=== PATIENT | male | born 1955 | race Caucasian/White ===

== ENCOUNTER 2018-06-07 16:30 | Emergency (ER) | payer BC ==
[~2018-06-07 16:30] MED LIST: ASCO-599 PO; CHOL100062 PO; FISH OIL1 CAP PO; MULT-1335 PO; NAPR220C12 PO
--- NOTE | 2018-06-07 17:28 | RADIOLOGY IMAGING REPORT ---
FACILITY: [facility] - [place] PATIENT NAME: Miko Ardon : 1955 MR: [id number] V: [id number] EXAM DATE: ORDERING PHYSICIAN: ANH LUKE TECHNOLOGIST: [place] [facility] [place] Patient: Miko Ardon : 1955 Visit/Account:[id number] Date of Sevice: 06/07/2018 CT OF THE BRAIN WITHOUT CONTRAST HISTORY: Injury to the left temporal area PROCEDURE: 3.0 mm contiguous axial sections were performed through the brain. Sagittal and coronal r eformats were submitted. COMPARISON: None FINDINGS: BRAIN: Brain and intracranial structures: There is no mass lesion, hemorrhage or acute infarct. Orbits (included portions): Normal. Scalp: Normal. Skull: Normal. Paranasal sinuses and mastoid air cells (included portions): Normal. IMPRESSION: No evidence of acute intracranial abnormality. One of the following dose optimization techniques was utilized in the performance of this exam: Autom ated exposure control; adjustment of the mA and/or kV according to the patient's size; or use of an i terative reconstruction technique. Specific details can be referenced in the facility's radiology C T exam operational policy. Report Dictated By: Lea Hanks MD at 06/07/2018 5:22 PM Report E-Signed By: Lea Hanks MD at 06/07/2018 5:24 PM WSN:[id number]
--- NOTE | 2018-06-07 17:29 | RADIOLOGY IMAGING REPORT ---
FACILITY: [facility] - [place] PATIENT NAME: Miko Ardon : 1955 MR: [id number] V: [id number] EXAM DATE: ORDERING PHYSICIAN: ANH LUKE TECHNOLOGIST: Location: [facility] - [place], [place] Patient: Miko Ardon : 1955 Visit/Account:[id number] Date of Sevice: 06/07/2018 2 VIEWS CHEST INDICATION: Fall from ladder. COMPARISON: None available FINDINGS: Cardiomediastinal silhouette and pulmonary vessels within normal limits. Possible coronary artery aura cification/stent. There is no focal infiltrate or lobar consolidation. There is no pneumothorax or pleural effusion. Upper abdomen is unremarkable. No acute bony abnormality. No indication of vertebral body compression or discrete rib fractures. IMPRESSION: 1. No acute cardiopulmonary process. No indication of thoracic trauma. Report Dictated By: Mc Chavez at 06/07/2018 5:23 PM Report E-Signed By: Mc Chavez at 06/07/2018 5:26 PM WSN:[id number]
--- NOTE | 2018-06-07 17:31 | RADIOLOGY IMAGING REPORT ---
FACILITY: [facility] PATIENT NAME: Miko Ardon : 1955 MR: [id number] V: [id number] EXAM DATE: ORDERING PHYSICIAN: ANH LUKE TECHNOLOGIST: Location: [place] [facility] - [place] Patient: Miko Ardon : 1955 Visit/Account:[id number] Date of Sevice: 06/07/2018 RIBS RIGHT INDICATION: Right rib pain after fall from ladder.. COMPARISON: None Available. FINDINGS: 2 views of the right ribs. No discrete or slice rib fracture. No bony lesions. The lungs sh ow a few scattered granulomas without other focal abnormality. The remaining bony and soft tissues un remarkable. IMPRESSION: No indication of right rib fracture. Report Dictated By: Mc Chavez at 06/07/2018 5:26 PM Report E-Signed By: Mc Chavez at 06/07/2018 5:28 PM WSN:[id number]
--- NOTE | 2018-06-07 17:42 | ER Report ---
History and Physical Time Seen By MD: 16:36 Hx. of Stated Complaint: PATIENT REPORTS THAT HE WAS ON A LADDER AND THE LADDER SLIPPED. HE FELL FROM ABOUT 4-5 FEET AND LANDED ON HIS BACK. HE ALSO REPORTS HITTING HIS HEAD. PATIENT IS ON BLOOD THINNERS FROM A PREVIOUS CARDIAC EVENT HPI/ROS CHIEF COMPLAINT: Fall, right rib and head injury HISTORY OF PRESENT ILLNESS: Patient is a 62-year-old male who presents to ED with complaint of right rib injury after falling from a ladder. He states that he was about 3-4 feet onto the ladder when he fell. He states that he fell and to a small stepladder where he hit the right side of his back. He has had pain with cough and deep breaths. He states that he also hit the right side of his head but has not had any headache, LOC, nausea, vomiting, numbness, tingling. He is however on Brilinta for a previous heart stent that was placed 2 years ago. He is not taking any medication for this. He has not applied ice. REVIEW OF SYSTEMS: Constitutional: No fever, no chills. Cardiovascular: No chest pain, no palpitations. Respiratory: No cough, no shortness of breath. Musculoskeletal: See history of present illness. Skin: No rashes. Neurological: See history of present illness. Allergies: Coded Allergies: No Known Drug Allergies (Unverified , 01/12/16) Home Meds Reported Medications Naproxen Sodium (ALEVE) 220 Mg Capsule, 440 MG PO BID, CAPSULE 01/12/16 Multivitamins W-Minerals (Multiple Vitamin) 1 Tab Tablet, 1 TAB PO QDAY 03/10/13 Ascorbate Calcium (Vitamin C) 500 Mg Tablet, 500 MG PO QDAY 03/10/13 Cholecalciferol (Vitamin D3) (VITAMIN D) 10,000 Unit Capsule, 46860 UNIT PO QDAY 03/10/13 [place]-3 Fatty Acids (Fish Oil) 1 Cap Capsule, 1 CAP PO QDAY 03/10/13 Reviewed Nurses Notes: Yes Old Medical Records Reviewed: Yes Hx Smoking: Yes Smoking Status: Former Smoker Exposure to Second Hand Smoke?: Yes Constitutional Vital Sign - Last 24 Hours 06/07/18 16:38 Temp 98.6 Pulse 82 Resp 20 B/P (MAP) 164/88 Pulse Ox 95 O2 Delivery Room Air Physical Exam General Appearance: The patient is alert, has no immediate need for airway protection and no signs of toxicity. Patient appears to be in no acute distress. Eyes: Pupils equal and round no pallor or injection. EOMs are full bilaterally. ENT, Mouth: Mucous membranes are moist. Respiratory: There are no retractions, lungs are clear to auscultation. There is pain with palpation of the lateral superior right rib area. No swelling or ecchymosis appreciated. Cardiovascular: Regular rate and rhythm. Neurological: Cranial nerves II through XII intact. Normal Romberg. Normal finger to nose test bilaterally. Skin: Warm and dry, no rashes. Musculoskeletal: Neck is supple non tender. Extremities are nontender, nonswollen and have full range of motion. DIFFERENTIAL DIAGNOSIS: After history and physical exam differential diagnosis was considered for head injury including but not limited to concussion, skull fracture, intraparenchymal contusion, subarachnoid, subdural and epidural hematoma. Medical Decision Making EKG/Imaging Imaging CT Head: IMPRESSION: No evidence of acute intracranial abnormality. One of the following dose optimization techniques was utilized in the performance of this exam: Automated exposure control; adjustment of the mA and/ or kV according to the patient's size; or use of an iterative reconstruction technique. Specific details can be referenced in the facility's radiology CT exam operational policy. Report Dictated By: Lea Hanks MD at 06/07/2018 5:22 PM Report E-Signed By: Lea Hanks MD at 06/07/2018 5:24 PM Right Rib Xrays: IMPRESSION: No indication of right rib fracture. Report Dictated By: Mc Chavez at 06/07/2018 5:26 PM Report E-Signed By: Mc Chavez at 06/07/2018 5:28 PM ED Course/Re-evaluation ED Course Will obtain right rib xrays and CT head. 06/07/2018 5:41:09 pm - discussed all imaging results with patient. There appears to be no rib fracture. There also appears to be no intracranial abnormality on CT. He likely does have a contusion and discussed this with him. He may take Tylenol or ibuprofen for pain relief. Discussed that if he has any, fever should return to emergency department or primary care provider for evaluation. Decision to Disposition Date: Jun 07, 2018 Decision to Disposition Time: 17:41 Depart Departure Latest Vital Signs Vital Signs Date Time Temp Pulse Resp B/P (MAP) Pulse Ox O2 Delivery O2 Flow Rate FiO2 06/07/18 16:38 98.6 82 20 164/88 95 Room Air Impression: Primary Impression: Head injury Additional Impression: Contusion of rib on right side Condition: Improved Disposition: HOME OR SELF-CARE Referrals: SANGEETHA PAEZ DO (PCP) Patient Instructions: Head Injury (ED), Rib Contusion (ED) Additional Instructions: Rest, ice. Follow-up with primary care provider in 2-3 days. If having any worsening concerning symptoms may return to the emergency department. Monitor for signs symptoms of worsening head injury including worsening headache, nausea , vomiting, numbness, tingling. Problem Qualifiers Primary Impression: Head injury Encounter type: initial encounter Qualified Codes: S09.90XA - Unspecified injury of head, initial encounter Additional Impression: Contusion of rib on right side Encounter type: initial encounter Qualified Codes: S20.211A - Contusion of right front wall of thorax, initial encounter ANH LUKE PA-C Jun 07, 2018 17:42
[2018-06-07 17:56] VITALS: BP 129/79
== END 2018-06-07 18:00 | disposition home or self-care (01) ==
LOC: ER 16:51
DX: S09.90XA Unspecified injury of head, initial encounter (principal); S20.211A Contusion of right front wall of thorax, initial encounter; W11.XXXA Fall on and from ladder, initial encounter
CPT/HCPCS: 70450; 71046; 71100; 99285